=== PATIENT | male | born 1960 | race Caucasian/White ===

== ENCOUNTER 2017-01-21 22:30 | Emergency (ER) | payer OTHER ==
[~2017-01-21] VITALS: Ht 175.3 cm; Wt 79.0 kg
[2017-01-21 22:34] VITALS: Ht 175.3 cm; Wt 79.0 kg
[2017-01-21] MEDS ORDERED: HYDROmorphONE 1 MG/ML SYG IV STA ×2 (22:43→22:48)
[2017-01-21] MEDS ORDERED: ONDANSETRON 4 MG INJ IV STA ×2 (22:43→22:48)
[2017-01-21 22:45] VITALS: TEMP 97.9
[2017-01-21] MEDS ORDERED: SOD CHLORIDE 0.9% 1,000 ML IV STA (22:48)
[2017-01-21] MEDS ORDERED: OMEP40CA6 PO (22:53)
[2017-01-21] MEDS ORDERED: PRAV20TA63 PO (22:53)
[2017-01-21] MEDS ORDERED: LOSA1TAB20 PO (22:53)
[2017-01-21] MEDS ORDERED: AMLO5TAB4 PO (22:54)
[2017-01-21] MEDS ORDERED: METO50TA16 PO (22:54)
[2017-01-21] MEDS ORDERED: SOD CHLORIDE 0.9% 1,000 ML IV ONE (23:00)
[2017-01-21 23:03] LABS: ADD SCAN DIFF NO
[2017-01-21 23:06] LABS: BASOPHILS % 0.1 % (0.0-2.0); HEMATOCRIT 44.4 % (42.0-52.0); HEMOGLOBIN 16.1 g/dl (14.0-18.0); LYMPHOCYTES # 0.8 10^3/ul (0.8-2.9); LYMPHOCYTES % 7.7 % (15.0-51.0); MEAN CORPUSCULAR HEMOGLOBIN 31.8 pg (29.0-33.0); MEAN CORPUSCULAR HGB CONC 36.3 g/dl (32.0-37.0); MEAN CORPUSCULAR VOLUME 87.7 fl (82.0-101.0); MEAN PLATELET VOLUME 9.7 fl (7.4-10.4); MONOCYTE # 0.2 10^3/ul (0.3-0.9); MONOCYTES % 2.2 % (0.0-11.0); NEUTROPHIL # 9.6 10^3/ul (1.6-7.5); NEUTROPHILS % 89.7 % (39.0-77.0); PLATELET COUNT 295 10^3/UL (140-415); RED BLOOD COUNT 5.06 10^6/ul (4.70-6.10); RED CELL DISTRIBUTION WIDTH 12.2 % (11.5-14.5); WHITE BLOOD COUNT 10.8 10^3/ul (4.8-10.8)
[2017-01-21 23:14] LABS: POTASSIUM 3.8 mmol/L (3.5-5.1)
[2017-01-21 23:16] LABS: CREATININE 0.84 mg/dl (0.61-1.24)
[2017-01-21 23:18] LABS: CALCIUM 9.4 mg/dl (8.4-10.2)
[2017-01-21 23:22] LABS: ADD UMIC YES; URINE BILIRUBIN (Dip) 1+ (NEGATIVE); URINE BLOOD (Dip) 3+ (NEGATIVE); URINE COLOR DK. BROWN (YELLOW); URINE GLUCOSE (Dip) NEGATIVE (NEGATIVE); URINE KETONES (Dip) NEGATIVE (NEGATIVE); URINE LEUKOCYTE ESTERASE (Dip) NEGATIVE (NEGATIVE); URINE NITRITE (Dip) NEGATIVE (NEGATIVE); URINE TOTAL PROTEIN (Dip) 2+ (NEGATIVE); URINE UROBILINOGEN (Dip) 0.2 E.U./dL (0.1-1.0)
[2017-01-21 23:44] LABS: ICTOTEST NEGATIVE (NEGATIVE); URINE RBCS >200 /HPF (0)
--- NOTE | 2017-01-22 00:10 | RADRPT ---
PROCEDURE: CT Abdomen and pelvis without contrast. CLINICAL INDICATION: Abdominal pain. TECHNIQUE: CT scan of the abdomen and pelvis was performed on a multi-detector high-resolution CT scanner. Contiguous axial images were obtained from the lung bases to the ischial tuberosities wit hout intravenous contrast. Coronal and sagittal reformatted images were also obtained. Images were reviewed on the PACS workstation. One or more of the following dose reduction techniques were used: - Automated exposure control. - Adjustment of the mA and/or kV according to patient size. - Use of iterative reconstruction technique. Exam CTD/vol = 9.23 mGy. Total exam DLP = 521.42 mGy-cm. COMPARISON: None. FINDINGS: Evaluation of the lung bases demonstrates minimal bibasilar atelectasis. Abdomen: The liver is normal in size and diffusely low in attenuation consistent with mild infiltra tion. There is no focal mass or dilatation of the biliary tree. The gallbladder is not distended. The spleen, pancreas and bilateral adrenal glands are within normal limits. Bilateral kidneys are normal in size with no contour deforming mass identified. There is a 2 mm calculus within the upper pole of the right kidney. There are multiple right renal calculi with the largest measuring 7 x 4 mm. There is a left-sided ureteral stent present. ureteral calculus identified. There is no hydron ephrosis or hydroureter. There is no retroperitoneal adenopathy. The abdominal aorta is of normal caliber with mild scattered atherosclerotic calcifications. There is no abnormal bowel wall thickening or distension. There is no bowel obstruction or free air . A normal appendix is identified. There is no diverticulosis or diverticulitis. There is no asci migdalia. Pelvis: The bladder contains a Jean catheter. The prostate and seminal vesicles are within normal limits. There is no significant pelvic adenopathy or free fluid. Evaluation of the osseous structures demonstrates no suspicious lytic or blastic lesion. IMPRESSION: Bilateral renal calculi. There is no radiopaque ureteral calculus or obstructive uropathy. Left-sided ureteral stent in place. Mild fatty infiltration of the liver. Mild vascular calcifications reflective of atherosclerosis. .Tho Tineo MD, Date Time Electronically viewed and signed by .Tho Tineo MD, MD on 01/22/2017 00:10 .T/
[2017-01-22] MEDS ORDERED: TAMS-14 PO (00:35)
[2017-01-22] MEDS ORDERED: CIPR500T4 PO (00:35)
[2017-01-22] MEDS ORDERED: HYDR-902 PO (00:35)
--- NOTE | 2017-01-22 00:42 | ERD ---
ER Documentation Chief Complaint Date/Time DATE: 01/22/17 TIME: 00:36 Chief Complaint AP on the left lower abdomen. Hx kidney stone and left kidney stent HPI This is a 56-year-old male who is complaining of left flank pain. The patient had a left ureter stent placed today at an outside facility for a 1 cm left ureter stent. The stone was broken up into small pieces first then the stent was placed. The patient has a Jean catheter from the procedure. The patient said that he had sudden pain became white and sweaty but no syncope. The pain is described as sharp and radiating into the left lower quadrant. Pain is exactly like prior stones he has had in the past. No chest pain shortness of breath or fever. No hematuria. ROS All systems reviewed and are negative except as per history of present illness. Medications Home Meds Active Scripts Hydrocodone/Acetaminophen ([place] 10-325 Tablet) 1 Each Tablet, 1 TAB PO Q6H Y for PAIN, #20 TAB Prov:DARELL STERN DO 01/22/17 Ciprofloxacin Hcl* (Ciprofloxacin Hcl*) 500 Mg Tablet, 500 MG PO BID for 7 Days , TAB Prov:DARELL STERN DO 01/22/17 Tamsulosin Hcl* (Flomax*) 0.4 Mg Cap.er.24h, 0.4 MG PO QPM, #10 CAP Prov:DARELL STERN DO 01/22/17 Reported Medications Metoprolol Succinate* (Toprol XL*) 50 Mg Tab.er.24h, 50 MG PO DAILY, #30 TAB 01/21/17 Amlodipine Besylate* (Norvasc*) 5 Mg Tablet, 5 MG PO DAILY, TAB 01/21/17 Omeprazole* (Omeprazole*) 40 Mg Capsule.dr, 40 MG PO DAILY, #30 CAP 01/21/17 Losartan-Hydrochlorothiazide (Losartan-HCTZ) 100-25 Mg Tab, 1 TAB PO DAILY, TAB 01/21/17 Pravastatin Sodium* (Pravastatin Sodium*) 20 Mg Tablet, 20 MG PO HS, TAB 01/21/17 Allergies Allergies: Coded Allergies: No Known Allergy (Unverified , 01/21/17) PMhx/Soc History of Surgery: Yes (HERNIA REPAIR 1996) Anesthesia Reaction: No Hx Neurological Disorder: No Hx Respiratory Disorders: No Hx Cardiac Disorders: Yes (HTN, DYSLIPIDEMIA) Hx Psychiatric Problems: No Hx Alcohol Use: Yes Hx Substance Use: No Hx Tobacco Use: Yes Smoking Status: Light tobacco smoker FmHx Family History: No coronary disease Physical Exam Vitals Vital Signs Date Time Temp Pulse Resp B/P Pulse Ox O2 Delivery O2 Flow Rate FiO2 01/21/17 22:45 97.9 88 18 135/72 100 Room Air 01/21/17 22:34 97.9 98 18 135/72 99 Physical Exam Const: Well-developed, well-nourished, in obvious pain Head: Atraumatic, normocephalic Eyes: Normal Conjunctiva, PERRLA, EOMI, normal sclera, no nystagmus ENT: Normal External Ears, Nose and Mouth, moist mucus membranes. Neck: Full range of motion. No meningismus, no lymphadenopathy. Resp: Clear to auscultation bilaterally, no wheezing, rhonchi, rales Cardio: Regular rate and rhythm, no murmurs, S1 S2 present Abd: Soft, non tender x 4, non distended. Normal bowel sounds, no guarding or rebound, no pulsitile abdominal masses or bruits Skin: No petechiae or rashes, no ecchymosis , no maculopapular rash Back: Left flank tenderness] Ext: No cyanosis, or edema, FROM x 4, normal inspection, neurovascularly intact x 4 Neur: Awake and alert, STR 5/5 x 4, sensation intact x 4, no focal findings, cerebellum intact Psych: Normal Mood and Affect Result Diagram: 01/21/17224901/21/172249 Results 24 hrs Laboratory Tests Test 01/21/17 22:50 01/21/17 22:57 Anion Gap 26 Basophils # 0.010^3/ul Basophils % 0.1% Blood Urea Nitrogen 18mg/dl Calcium Level 9.4mg/dl Carbon Dioxide Level 20mmol/L Chloride Level 99mmol/L Creatinine 0.84mg/dl Eosinophils # 0.010^3/ul Eosinophils % 0.0% Glucose Level 201mg/dl Hematocrit 44.4% Hemoglobin 16.1g/dl Lymphocytes # 0.810^3/ul Lymphocytes % 7.7% Mean Corpuscular Hemoglobin 31.8pg Mean Corpuscular Hemoglobin Concent 36.3g/dl Mean Corpuscular Volume 87.7fl Mean Platelet Volume 9.7fl Monocytes # 0.210^3/ul Monocytes % 2.2% Neutrophils # 9.610^3/ul Neutrophils % 89.7% Nucleated Red Blood Cells # 0.010^3/ul Nucleated Red Blood Cells % 0.0/100WBC Platelet Count 14748^3/UL Potassium Level 3.8mmol/L Red Blood Count 5.0610^6/ul Red Cell Distribution Width 12.2% Sodium Level 141mmol/L White Blood Count 10.810^3/ul Urine Bilirubin 1+ Urine Clarity CLEAR Urine Color DK. BROWN Urine Glucose NEGATIVE% Urine Hemoglobin 3+ Urine Ictotest NEGATIVE Urine Ketones NEGATIVE Urine Leukocyte Esterase NEGATIVE Urine Microscopic RBC >200/HPF Urine Microscopic WBC 2-5/HPF Urine Nitrite NEGATIVE Urine Specific [place] >=1.030 Urine Total Protein 2+ Urine Urobilinogen 0.2 E.U./dL Urine pH 5.5 Current Medications Medications (Trade) Dose Ordered Sig/José Miguel Route PRN Reason Start Time Stop Time Status Last Admin Dose Admin Sodium Chloride (NS) 1,000 ml @ 1,000 mls/hr Q1H ONCE IV 01/21/17 23:00 01/21/17 23:59 DC 01/21/17 22:47 Hydromorphone HCl (Dilaudid) 1 mg ONCE STAT IV 01/21/17 22:43 01/21/17 22:45 DC 01/21/17 22:47 Ondansetron HCl 4 mg 4 mg ONCE STAT IV 01/21/17 22:43 01/21/17 22:45 DC 01/21/17 22:47 Sodium Chloride (NS) 1,000 ml @ 1,000 mls/hr Q1H STAT IV 01/21/17 22:48 01/21/17 23:47 DC 01/22/17 00:22 Hydromorphone HCl (Dilaudid) 1 mg ONCE STAT IV 01/21/17 22:48 01/21/17 22:50 DC 01/22/17 00:25 Ondansetron HCl (Zofran Inj) 4 mg ONCE STAT IV 01/21/17 22:48 01/21/17 22:50 DC 01/22/17 00:25 Procedures/MDM PROCEDURE: CT Abdomen and pelvis without contrast. CLINICAL INDICATION: Abdominal pain. TECHNIQUE: CT scan of the abdomen and pelvis was performed on a multi- detector high-resolution CT scanner. Contiguous axial images were obtained from the lung bases to the ischial tuberosities without intravenous contrast. Coronal and sagittal reformatted images were also obtained. Images were reviewed on the PACS workstation. One or more of the following dose reduction techniques were used: - Automated exposure control. - Adjustment of the mA and/or kV according to patient size. - Use of iterative reconstruction technique. Exam CTD/vol = 9.23 mGy. Total exam DLP = 521.42 mGy-cm. COMPARISON: None. FINDINGS: Evaluation of the lung bases demonstrates minimal bibasilar atelectasis. Abdomen: The liver is normal in size and diffusely low in attenuation consistent with mild infiltration. There is no focal mass or dilatation of the biliary tree. The gallbladder is not distended. The spleen, pancreas and bilateral adrenal glands are within normal limits. Bilateral kidneys are normal in size with no contour deforming mass identified. There is a 2 mm calculus within the upper pole of the right kidney. There are multiple right renal calculi with the largest measuring 7 x 4 mm. There is a left-sided ureteral stent present. ureteral calculus identified. There is no hydronephrosis or hydroureter. There is no retroperitoneal adenopathy. The abdominal aorta is of normal caliber with mild scattered atherosclerotic calcifications. There is no abnormal bowel wall thickening or distension. There is no bowel obstruction or free air. A normal appendix is identified. There is no diverticulosis or diverticulitis. There is no ascites. Pelvis: The bladder contains a Jean catheter. The prostate and seminal vesicles are within normal limits. There is no significant pelvic adenopathy or free fluid. Evaluation of the osseous structures demonstrates no suspicious lytic or blastic lesion. IMPRESSION: Bilateral renal calculi. There is no radiopaque ureteral calculus or obstructive uropathy. Left-sided ureteral stent in place. Mild fatty infiltration of the liver. Mild vascular calcifications reflective of atherosclerosis. .Tho Tineo MD, MD Date Time Electronically viewed and signed by .Tho Tineo MD, MD on 01/22/2017 00:10 .T/ CC: DARELL STERN DO Patient is pain-free now no evidence of any residual stones. Has a mild UTI will cover with antibiotics patient is pain-free and was discharged with Flomax and norco Departure Diagnosis: Primary Impression: Ureterolithiasis Condition: Stable Patient Instructions: Kidney Stone W/ Colic DARELL STERN DO Jan 22, 2017 00:42
[2017-01-22 00:51] VITALS: BP 125/71; PULSE 73; RESP 18
== END 2017-01-22 00:49 | disposition home or self-care (01) ==
LOC: E/R 22:30
DX: N20.1 Calculus of ureter (principal); I10 Essential (primary) hypertension; F17.210 Nicotine dependence, cigarettes, uncomplicated
CPT/HCPCS: 36415; 74176; 80048; 81001; 85025; 96374; 96375; 96376; J1170; J2405; J7030; Z7502; 81003

== ENCOUNTER 2017-01-27 07:43 | Emergency (ER) | payer OTHER ==
[~2017-01-27] VITALS: Ht 175.3 cm; Wt 77.3 kg
[~2017-01-27 07:43] MED LIST: AMLO5TAB4 PO; CIPR500T4 PO; HYDR-902 PO; LOSA1TAB20 PO; METO50TA16 PO; OMEP40CA6 PO; PRAV20TA63 PO; TAMS-14 PO
[2017-01-27 07:45] VITALS: Ht 175.3 cm; Wt 77.3 kg
[2017-01-27] MEDS ORDERED: SOD CHLORIDE 0.9% 1,000 ML IV STA (07:53)
[2017-01-27] MEDS ORDERED: HYDROmorphONE 1 MG/ML SYG IV STA (07:53)
[2017-01-27] MEDS ORDERED: ONDANSETRON 4 MG INJ IV STA (07:53)
[2017-01-27 08:13] LABS: ADD SCAN DIFF NO
[2017-01-27 08:25] LABS: BASOPHILS % 0.1 % (0.0-2.0); EOSINOPHILS # 0.2 10^3/ul (0.0-0.5); EOSINOPHILS % 1.8 % (0.0-7.0); HEMATOCRIT 44.5 % (42.0-52.0); HEMOGLOBIN 16.3 g/dl (14.0-18.0); LYMPHOCYTES # 2.8 10^3/ul (0.8-2.9); LYMPHOCYTES % 29.6 % (15.0-51.0); MEAN CORPUSCULAR HEMOGLOBIN 31.8 pg (29.0-33.0); MEAN CORPUSCULAR HGB CONC 36.6 g/dl (32.0-37.0); MEAN CORPUSCULAR VOLUME 86.9 fl (82.0-101.0); MEAN PLATELET VOLUME 9.5 fl (7.4-10.4); MONOCYTE # 0.7 10^3/ul (0.3-0.9); NEUTROPHIL # 5.6 10^3/ul (1.6-7.5); NEUTROPHILS % 60.3 % (39.0-77.0); PLATELET COUNT 293 10^3/UL (140-415); RED BLOOD COUNT 5.12 10^6/ul (4.70-6.10); RED CELL DISTRIBUTION WIDTH 11.9 % (11.5-14.5); WHITE BLOOD COUNT 9.3 10^3/ul (4.8-10.8)
--- NOTE | 2017-01-27 08:31 | RADRPT ---
PROCEDURE: CT abdomen and pelvis without contrast. CLINICAL INDICATION: Left flank pain and left groin pain. TECHNIQUE: CT of the abdomen and pelvis without contrast was performed on a multidetector high-res olution CT scanner. Coronal and sagittal reformatted images were obtained from the axial source imag es. Images were reviewed on a high-resolution PACS workstation. The total exam CTDI equals 11.85 mGy and the total exam DLP equals 737.81 mGy-cm. One or more of the following dose reduction techniques were used: - Automated exposure control. - Adjustment of the mA and/or kV according to patient size. - Use of iterative reconstruction technique. COMPARISON: CT dated 01/21/2017. FINDINGS: The visualized lung bases are clear and the visualized heart is unremarkable. The liver is grossly unremarkable. There is no intra or extrahepatic biliary ductal dilatation. The gallbladder, spleen, pancreas, adrenal glands are grossly unremarkable. There is a left-sided double J nephroureteral stent in place with new mild to moderate left-sided hy dronephrosis and hydroureter. There is also mildly increased left perinephric and periureteral infla mmatory change. There is a new punctate stone within the proximal left ureter posterior to the stent . Nonobstructing stones at the midportion and lower pole of the left kidney, ranging in size from p unctate to 4 mm, are not significantly changed. There is a similar 2 mm nonobstructing stone at the midportion of the right kidney. There is no right-sided hydronephrosis. There is no bowel wall thickening or evidence of obstruction. The appendix is in the right lower trevor drant, and is unremarkable. There is no free intraperitoneal air or free fluid. There is no mesente jake or retroperitoneal adenopathy. There are atherosclerotic changes of the aorta, which is nonaneu rysmal. The prostate gland is large measuring 4.9 cm in axial dimension. The seminal vesicles are g rossly unremarkable. There is mild to moderate multilevel degenerative spondylosis. There are no concerning osseous lesio ns. IMPRESSION: 1. New mild to moderate left-sided hydroureteronephrosis with mildly increased left perinephric and periureteral inflammatory change. Given that a double J nephroureteral stent remains in place, thi s suggests stent malfunction. 2. New punctate stone within the proximal left ureter posterior to the stent, which should not be a source of hydronephrosis with the stent in place. 3. Bilateral nonobstructing nephrolithiasis, unchanged. 4. Enlarged prostate gland. Correlate with PSA. 5. Vascular calcifications consistent with atherosclerosis. RPTAT: GG .Riley An MD, MD Date Time Electronically viewed and signed by .Riley An MD, MD on 01/27/2017 08:31 .P/
[2017-01-27 08:33] LABS: ALBUMIN 4.7 g/dl (3.3-4.9)
[2017-01-27 08:34] LABS: POTASSIUM 3.6 mmol/L (3.5-5.1)
[2017-01-27 08:36] LABS: ALBUMIN/GLOBULIN RATIO 1.34; BILIRUBIN,INDIRECT 0.9 mg/dl (0-1.1); BILIRUBIN,TOTAL 0.9 mg/dl (0.2-1.3); CREATININE 0.96 mg/dl (0.61-1.24); TOTAL PROTEIN 8.2 g/dl (6.1-8.1)
[2017-01-27 08:37] LABS: CALCIUM 9.6 mg/dl (8.4-10.2)
[2017-01-27 08:38] LABS: INR 0.97; PARTIAL THROMBOPLASTIN TIME 22.5 Sec (25.0-35.0); PROTIME 12.9 Sec (12.2-14.2)
[2017-01-27 08:48] LABS: TROPONIN-I 0.019 ng/ml (0.00-0.12)
[2017-01-27 09:19] LABS: ADD UMIC YES; URINE BILIRUBIN (Dip) 1+ (NEGATIVE); URINE BLOOD (Dip) 3+ (NEGATIVE); URINE COLOR AMBER (YELLOW); URINE KETONES (Dip) 15 (NEGATIVE); URINE LEUKOCYTE ESTERASE (Dip) 1+ (NEGATIVE); URINE NITRITE (Dip) POSITIVE (NEGATIVE); URINE TOTAL PROTEIN (Dip) 4+ (NEGATIVE); URINE UROBILINOGEN (Dip) 2.0 E.U./dL (0.1-1.0)
[2017-01-27] MEDS ORDERED: HYDR-902 PO (10:08)
[2017-01-27] MEDS ORDERED: CIPR500T4 PO (10:08)
[2017-01-27 10:10] LABS: ICTOTEST NEGATIVE (NEGATIVE)
[2017-01-27 10:11] LABS: MUCUS,URINE FEW; SQUAMOUS EPITHELIAL CELL,UR FEW; URINE RBCS >50 /HPF (0)
[2017-01-27 10:14] LABS: BACTERIA,URINE MODERATE
[2017-01-27 10:29] VITALS: BP 132/67; PULSE 91; RESP 18
--- NOTE | 2017-01-27 12:03 | ERD ---
ER Documentation Chief Complaint Date/Time DATE: 01/27/17 TIME: 12:01 Chief Complaint LLQ abd pain x 0500 hx L kidney stone HPI A 56-year-old male with kidney stones and hypertension who presents saying "I think I have a kidney stone". The patient had a stent placed on Thursday and is having left sided flank pain and left-sided abdominal pain. He has had constipation without diarrhea. The patient has nausea. His urologist is at [facility]. The pain is constant and sharp in nature. ROS All systems reviewed and are negative except as per history of present illness. Medications Home Meds Active Scripts Ciprofloxacin Hcl* (Ciprofloxacin Hcl*) 500 Mg Tablet, 500 MG PO BID for 7 Days , TAB Prov:MANSOOR ALANIZ MD 01/27/17 Hydrocodone/Acetaminophen ([place] 10-325 Tablet) 1 Each Tablet, 1 TAB PO Q6H Y for PAIN, #16 TAB Prov:MANSOOR ALANIZ MD 01/27/17 Hydrocodone/Acetaminophen ([place] 10-325 Tablet) 1 Each Tablet, 1 TAB PO Q6H Y for PAIN, #20 TAB Prov:DARELL STERN DO 01/22/17 Ciprofloxacin Hcl* (Ciprofloxacin Hcl*) 500 Mg Tablet, 500 MG PO BID for 7 Days , TAB Prov:DARELL STERN DO 01/22/17 Tamsulosin Hcl* (Flomax*) 0.4 Mg Cap.er.24h, 0.4 MG PO QPM, #10 CAP Prov:DARELL STERN DO 01/22/17 Reported Medications Metoprolol Succinate* (Toprol XL*) 50 Mg Tab.er.24h, 50 MG PO DAILY, #30 TAB 01/21/17 Amlodipine Besylate* (Norvasc*) 5 Mg Tablet, 5 MG PO DAILY, TAB 01/21/17 Omeprazole* (Omeprazole*) 40 Mg Capsule.dr, 40 MG PO DAILY, #30 CAP 01/21/17 Losartan-Hydrochlorothiazide (Losartan-HCTZ) 100-25 Mg Tab, 1 TAB PO DAILY, TAB 01/21/17 Pravastatin Sodium* (Pravastatin Sodium*) 20 Mg Tablet, 20 MG PO HS, TAB 01/21/17 Allergies Allergies: Coded Allergies: No Known Allergy (Unverified , 01/21/17) PMhx/Soc History of Surgery: Yes (HERNIA REPAIR 1996) Anesthesia Reaction: No Hx Neurological Disorder: No Hx Respiratory Disorders: No Hx Cardiac Disorders: Yes (HTN, DYSLIPIDEMIA) Hx Psychiatric Problems: No Hx Alcohol Use: Yes Hx Substance Use: No Hx Tobacco Use: Yes Smoking Status: Current every day smoker FmHx Family History: diabetes Physical Exam Vitals Vital Signs Date Time Temp Pulse Resp B/P Pulse Ox O2 Delivery O2 Flow Rate FiO2 01/27/17 10:29 91 18 132/67 99 Room Air 01/27/17 07:45 99.0 99 22 162/92 100 Physical Exam Const: Moderate distress secondary to pain Head: Atraumatic Eyes: Normal Conjunctiva ENT: Normal External Ears, Nose and Mouth. Neck: Full range of motion..~ No meningismus. Resp: Clear to auscultation bilaterally Cardio: Regular rate and rhythm, no murmurs Abd: Soft, left-sided abdominal pain with palpation Skin: No petechiae or rashes Back: No midline or flank tenderness Ext: No cyanosis, or edema Neur: Awake and alert Psych: Normal Mood and Affect Result Diagram: 01/27/17 0803 01/27/17 0803 Results 24 hrs Laboratory Tests Test 01/27/17 08:03 01/27/17 09:00 Activated Partial Thromboplast Time 22.5Sec Alanine Aminotransferase (ALT/SGPT) 36IU/L Albumin 4.7g/dl Albumin/Globulin Ratio 1.34 Alkaline Phosphatase 86IU/L Anion Gap 25 Aspartate Amino Transf (AST/SGOT) 32IU/L Basophils # 0.010^3/ul Basophils % 0.1% Blood Urea Nitrogen 17mg/dl Calcium Level 9.6mg/dl Carbon Dioxide Level 21mmol/L Chloride Level 99mmol/L Creatinine 0.96mg/dl Direct Bilirubin 0.00mg/dl Eosinophils # 0.210^3/ul Eosinophils % 1.8% Globulin 3.50g/dl Glucose Level 156mg/dl Hematocrit 44.5% Hemoglobin 16.3g/dl INR International Normalized Ratio 0.97 Indirect Bilirubin 0.9mg/dl Lipase 116U/L Lymphocytes # 2.810^3/ul Lymphocytes % 29.6% Mean Corpuscular Hemoglobin 31.8pg Mean Corpuscular Hemoglobin Concent 36.6g/dl Mean Corpuscular Volume 86.9fl Mean Platelet Volume 9.5fl Monocytes # 0.710^3/ul Monocytes % 8.0% Neutrophils # 5.610^3/ul Neutrophils % 60.3% Nucleated Red Blood Cells # 0.010^3/ul Nucleated Red Blood Cells % 0.0/100WBC Platelet Count 99884^3/UL Potassium Level 3.6mmol/L Prothrombin Time 12.9Sec Prothrombin Time Ratio 1.0 Red Blood Count 5.1210^6/ul Red Cell Distribution Width 11.9% Sodium Level 141mmol/L Total Bilirubin 0.9mg/dl Total Protein 8.2g/dl Troponin I 0.019ng/ml White Blood Count 9.310^3/ul Urine Bacteria MODERATE Urine Bilirubin 1+ Urine Calcium Oxalate Crystals FEW Urine Clarity CLEAR Urine Color NATHALY Urine Glucose 0.1%% Urine Hemoglobin 3+ Urine Ictotest NEGATIVE Urine Ketones 15 Urine Leukocyte Esterase 1+ Urine Microscopic RBC >50/HPF Urine Microscopic WBC 5-10/HPF Urine Mucus FEW Urine Nitrite POSITIVE Urine Specific [place] 1.025 Urine Squamous Epithelial Cells FEW Urine Total Protein 4+ Urine Urobilinogen 2.0 E.U./dL Urine Yeast FEW Urine pH 6.0 Current Medications Medications (Trade) Dose Ordered Sig/José Miguel Route PRN Reason Start Time Stop Time Status Last Admin Dose Admin Sodium Chloride (NS) 1,000 ml @ 1,000 mls/hr Q1H STAT IV 01/27/17 07:53 01/27/17 08:52 DC 01/27/17 08:04 Hydromorphone HCl (Dilaudid) 1 mg ONCE STAT IV 01/27/17 07:53 01/27/17 07:54 DC 01/27/17 08:03 Ondansetron HCl (Zofran Inj) 4 mg ONCE STAT IV 01/27/17 07:53 01/27/17 07:54 DC 01/27/17 08:03 Procedures/MDM PROCEDURE: CT abdomen and pelvis without contrast. CLINICAL INDICATION: Left flank pain and left groin pain. TECHNIQUE: CT of the abdomen and pelvis without contrast was performed on a multidetector high-resolution CT scanner. Coronal and sagittal reformatted images were obtained from the axial source images. Images were reviewed on a high-resolution PACS workstation. The total exam CTDI equals 11.85 mGy and the total exam DLP equals 737.81 mGy-cm. One or more of the following dose reduction techniques were used: - Automated exposure control. - Adjustment of the mA and/or kV according to patient size. - Use of iterative reconstruction technique. COMPARISON: CT dated 01/21/2017. FINDINGS: The visualized lung bases are clear and the visualized heart is unremarkable. The liver is grossly unremarkable. There is no intra or extrahepatic biliary ductal dilatation. The gallbladder, spleen, pancreas, adrenal glands are grossly unremarkable. There is a left-sided double J nephroureteral stent in place with new mild to moderate left-sided hydronephrosis and hydroureter. There is also mildly increased left perinephric and periureteral inflammatory change. There is a new punctate stone within the proximal left ureter posterior to the stent. Nonobstructing stones at the midportion and lower pole of the left kidney, ranging in size from punctate to 4 mm, are not significantly changed. There is a similar 2 mm nonobstructing stone at the midportion of the right kidney. There is no right-sided hydronephrosis. There is no bowel wall thickening or evidence of obstruction. The appendix is in the right lower quadrant, and is unremarkable. There is no free intraperitoneal air or free fluid. There is no mesenteric or retroperitoneal adenopathy. There are atherosclerotic changes of the aorta, which is nonaneurysmal. The prostate gland is large measuring 4.9 cm in axial dimension. The seminal vesicles are grossly unremarkable. There is mild to moderate multilevel degenerative spondylosis. There are no concerning osseous lesions. IMPRESSION: 1. New mild to moderate left-sided hydroureteronephrosis with mildly increased left perinephric and periureteral inflammatory change. Given that a double J nephroureteral stent remains in place, this suggests stent malfunction. 2. New punctate stone within the proximal left ureter posterior to the stent, which should not be a source of hydronephrosis with the stent in place. 3. Bilateral nonobstructing nephrolithiasis, unchanged. 4. Enlarged prostate gland. Correlate with PSA. 5. Vascular calcifications consistent with atherosclerosis. RPTAT: GG .Riley An MD, MD Date Time Electronically viewed and signed by .Riley An MD, MD on 01/27/2017 08:31 Patient is a 56-year-old male presents with acute left-sided flank pain. CT scan shows mild to moderate left-sided hydronephrosis. The patient has a mild urine infection. There is no obvious obstruction at this time. The patient feels better after pain medicines. Laboratory studies were normal. I believe outpatient management is appropriate. I doubt sepsis. The patient will be given Cipro as well as [place]. The patient can follow-up with his urologist. I did speak with the urologist who is going to take out the stent on . The patient can return for any worsening symptoms. I doubt appendicitis, cholecystitis, pancreatitis, or diverticulitis. Departure Diagnosis: Primary Impression: Pyelonephritis Additional Impression: Abdominal pain Abdominal location: unspecified location Qualified Code: R10.9 - Abdominal pain, unspecified location Condition: Fair Patient Instructions: Pyelonephritis Referrals: Your Urologist Additional Instructions: SPECIALIST: YOU HAVE A MEDICAL CONDITION WHICH REQUIRES YOU TO SEE A SPECIALIST WITHIN THE NEXT 1-2 DAYS. PLEASE FOLLOW UP WITH YOUR PRIMARY PHYSICIAN FOR REFFERAL.IF YOU DO NOT HAVE A PRIMARY CARE PHYSICIAN AND/OR YOU CAN NOT AFFORD TO SEE A PHYSICIAN THE FOLLOWING RESOURCES HAVE BEEN SUPPLIED TO YOU. IT IS YOUR RESPONSIBILITY TO BE SEEN BY THE SPECIALIST MANSOOR ALANIZ MD Jan 27, 2017 12:03
== END 2017-01-27 10:33 | disposition home or self-care (01) ==
LOC: E/R 07:43
DX: N12 Tubulo-interstitial nephritis, not specified as acute or chronic (principal); I10 Essential (primary) hypertension; F17.210 Nicotine dependence, cigarettes, uncomplicated; R40.2142 Coma scale, eyes open, spontaneous, at arrival to emergency department; R40.2252 Coma scale, best verbal response, oriented, at arrival to emergency department; R40.2362 Coma scale, best motor response, obeys commands, at arrival to emergency department; R11.0 Nausea
CPT/HCPCS: 74176; 80053; 81001; 83690; 84484; 85025; 85610; 85730; 87086; 93005; J1170; J2405; J7030; 36415; 81003; 96374; 96375

== ENCOUNTER 2017-05-02 09:53 | Emergency (ER) | payer OTHER ==
[~2017-05-02] VITALS: Wt 89.0 kg
[2017-05-02] MEDS ORDERED: LIDOCAINE 2% (MDV) 20 ML INJ INJ ONE (10:30)
--- NOTE | 2017-05-02 10:52 | RADRPT ---
PROCEDURE: CT brain without contrast CLINICAL INDICATION: Head injury, forehead laceration TECHNIQUE: CT of the brain without contrast was performed on a multidetector CT scanner, with multi planar reformats. One or more of the following dose reduction techniques were used: Automated expos ure control, adjustment in mA and / or kV according to patient size, use of iterative reconstructive technique. CTDIvol = 45 mGy; DLP = 720 mGy-cm. COMPARISON: None available FINDINGS: No acute intracranial hemorrhage is identified. No extra-axial fluid collection is seen. There is no mass effect. No midline shift is identified. Ventricles and sulci are within normal limits for size and configuration. The density of the brain is unremarkable. Tubbs-white differentiation is preserved. Atherosclerotic calcifications of the proximal intracranial arteries are noted. Osseous structures are unremarkable. There is left greater than right ethmoid air cell opacificatio n. IMPRESSION: No evidence of acute intracranial pathology. RPTAT: HH .Billy Lew MD, Date Time Electronically viewed and signed by .Billy Lew MD, on 05/02/2017 10:52 .O/
[2017-05-02] MEDS ORDERED: ACET500C5 PO (11:33)
--- NOTE | 2017-05-02 13:05 | ERD ---
ER Documentation Chief Complaint Date/Time DATE: 05/02/17 TIME: 12:56 Chief Complaint LAC TO FOREHEAD HPI 56-year-old male patient with a past medical history of nephrolithiasis and hypertension presents to the ED complaining of a mechanical fall that he sustained as he was on a two-step stepladder trying to fix a light bulb earlier today. Patient states that he accidentally fell and hit the front of his head on the anterior part of his forehead on the edge of the wall. Reports that he is taking aspirin. Denies any loss of consciousness. Denies any nausea, vomiting, headache, abdominal pain, chest pain, shortness of breath, extremity pain, loss of sensation, loss of range of motion, dizziness, seizures, hematemesis. ROS All systems reviewed and are negative except as per history of present illness. Medications Home Meds Active Scripts Acetaminophen* (Tylophen*) 500 Mg Capsule, 1 CAP PO Q6H Y for PAIN AND OR ELEVATED TEMP, #20 CAP Prov:CHING DIAZ PA-C 05/02/17 Ciprofloxacin Hcl* (Ciprofloxacin Hcl*) 500 Mg Tablet, 500 MG PO BID for 7 Days , TAB Prov:MANSOOR ALANIZ MD 01/27/17 Hydrocodone/Acetaminophen ([place] 10-325 Tablet) 1 Each Tablet, 1 TAB PO Q6H Y for PAIN, #16 TAB Prov:MANSOOR ALANIZ MD 01/27/17 Hydrocodone/Acetaminophen ([place] 10-325 Tablet) 1 Each Tablet, 1 TAB PO Q6H Y for PAIN, #20 TAB Prov:DARELL STERN DO 01/22/17 Ciprofloxacin Hcl* (Ciprofloxacin Hcl*) 500 Mg Tablet, 500 MG PO BID for 7 Days , TAB Prov:DARELL STERN DO 01/22/17 Tamsulosin Hcl* (Flomax*) 0.4 Mg Cap.er.24h, 0.4 MG PO QPM, #10 CAP Prov:DARELL STERN DO 01/22/17 Reported Medications Metoprolol Succinate* (Toprol XL*) 50 Mg Tab.er.24h, 50 MG PO DAILY, #30 TAB 01/21/17 Amlodipine Besylate* (Norvasc*) 5 Mg Tablet, 5 MG PO DAILY, TAB 01/21/17 Omeprazole* (Omeprazole*) 40 Mg Capsule.dr, 40 MG PO DAILY, #30 CAP 01/21/17 Losartan-Hydrochlorothiazide (Losartan-HCTZ) 100-25 Mg Tab, 1 TAB PO DAILY, TAB 01/21/17 Pravastatin Sodium* (Pravastatin Sodium*) 20 Mg Tablet, 20 MG PO HS, TAB 01/21/17 Allergies Allergies: Coded Allergies: No Known Allergy (Unverified , 01/21/17) PMhx/Soc History of Surgery: Yes (HERNIA REPAIR 1996) Anesthesia Reaction: No Hx Neurological Disorder: No Hx Respiratory Disorders: No Hx Cardiac Disorders: Yes (HTN, DYSLIPIDEMIA) Hx Psychiatric Problems: No Hx Alcohol Use: Yes Hx Substance Use: No Hx Tobacco Use: Yes Smoking Status: Current every day smoker Physical Exam Vitals Vital Signs Date Time Temp Pulse Resp B/P Pulse Ox O2 Delivery O2 Flow Rate FiO2 05/02/17 10:00 98.0 80 18 136/73 99 Physical Exam Const: [id number], well-nourished. In no acute distress. Head: Atraumatic, normocephalic Eyes: Normal Conjunctiva without injection. No purulent discharge. PERRLA. EOMI ENT: Normal external ear. Ear canal without erythema. Tympanic membrane pearly tubbs without effusion or bulging. Nasal canal clear with normal turbinates. Moist oropharynx without tonsillar exudates. Non-erythematous pharynx. Uvula midline. No drooling. No trismus. Neck: No cervical midline tenderness. Full range of motion. No meningismus. No cervical lymphadenopathy. No JVD. Resp: Clear to auscultation bilaterally. No wheezing, rhonchi, rales, or crackles. No accessory muscle use. No retractions. Cardio: Regular rate and rhythm. No murmurs, rubs or gallops. Abd: Soft, non tender, non distended. Normal bowel sounds. No palpable masses. No rebound tenderness. No guarding. Negative McBurney's Point. Negative Redding's Sign. Skin: Normal skin turgor. No petechiae or rashes. 3.5 cm laceration noted on the left anterior forehead above eyebrow. Minimal bleeding noted. No purulent discharge, fluctuance, induration, ecchymosis noted. Back: No midline tenderness. No CVA tenderness. Ext: No cyanosis, or edema. Distal pulses intact bilaterally. Neur: Awake and alert. Normal gait. Normal coordination. Cranial Nerves II- VII intact. Normal finger to nose. Muscle strength 5/5. Sensation intact. Psych: Normal Mood and Affect Results 24 hrs Current Medications Medications (Trade) Dose Ordered Sig/José Miguel Route PRN Reason Start Time Stop Time Status Last Admin Dose Admin Lidocaine (Xylocaine 2% (Mdv) 20 ml) 20 ml ONCE ONCE INJ 05/02/17 10:30 05/02/17 10:31 DC 05/02/17 10:27 Procedures/MDM 56-year-old male patient with a past medical history of nephrolithiasis and hypertension presents the ED complaining of a mechanical fall that occurred earlier today on a stepladder. Patient is afebrile and nontoxic-appearing. Patient has normal vital signs. Since patient is taking aspirin, a CT of the brain without contrast was ordered to further evaluate patient. PROCEDURE: CT brain without contrast CLINICAL INDICATION: Head injury, forehead laceration TECHNIQUE: CT of the brain without contrast was performed on a multidetector CT scanner, with multiplanar reformats. One or more of the following dose reduction techniques were used: Automated exposure control, adjustment in mA and / or kV according to patient size, use of iterative reconstructive technique. CTDIvol = 45 mGy; DLP = 720 mGy-cm. COMPARISON: None available FINDINGS: No acute intracranial hemorrhage is identified. No extra-axial fluid collection is seen. There is no mass effect. No midline shift is identified. Ventricles and sulci are within normal limits for size and configuration. The density of the brain is unremarkable. Tubbs-white differentiation is preserved. Atherosclerotic calcifications of the proximal intracranial arteries are noted. Osseous structures are unremarkable. There is left greater than right ethmoid air cell opacification. IMPRESSION: No evidence of acute intracranial pathology. Patient gave consent to perform laceration repair. Laceration Repair by me: Anesthesia: 2 cc 1% lidocaine locally Location: Left forehead above left eyebrow Tendon/Joint/Nerves: No injury Foreign body: None detected after copious irrigation and exploration Technique: 5 6-0 Ethilon Simple Interrupted Sutures Complexity: No subcutaneous sutures/mucosal repair/ edge excision Post Closure Length: [3.5] cm Patient's bleeding was easily controlled in the department and there is no indication of anemia. Low suspicion for intracranial bleed, subarachnoid hemorrhage, meningitis, TIA, stroke, seizures, subdural hematoma, epidural hematoma, deep space infection, anemia, skull fracture or other emergent conditions. Patient is appropriate for outpatient follow up. 48 hour wound check. Scar minimization instructions given. Instructed patient to return for suture removal in 5-7 days. Discharge medications: Tylenol. Instructed patient to return to the ED sooner for any worsening symptoms. Follow up with primary care physician in 1-2 days. Patient's questions were answered. Patient understood and agreed with discharge plan. Departure Diagnosis: Primary Impression: Laceration of face Encounter type: initial encounter Qualified Code: S01.81XA - Laceration of face, initial encounter Condition: Stable Patient Instructions: Laceration, Face (Suture Or Tape) Referrals: [facility] YOU HAVE RECEIVED A MEDICAL SCREENING EXAM AND THE RESULTS INDICATE THAT YOU DO NOT HAVE A CONDITION THAT REQUIRES URGENT TREATMENT IN THE EMERGENCY DEPARTMENT. FURTHER EVALUATION AND TREATMENT OF YOUR CONDITION CAN WAIT UNTIL YOU ARE SEEN IN YOUR DOCTORS OFFICE WITHIN THE NEXT 1-2 DAYS. IT IS YOUR RESPONSIBILITY TO MAKE AN APPOINTMENT FOR FOLOW-UP CARE. IF YOU HAVE A PRIMARY DOCTOR --you should call your primary doctor and schedule an appointment IF YOU DO NOT HAVE A PRIMARY DOCTOR YOU CAN CALL OUR PHYSICIAN REFERRAL HOTLINE AT IF YOU CAN NOT AFFORD TO SEE A PHYSICIAN YOU CAN CHOSE FROM THE FOLLOWING [facility] [address] [facility]. [facility] [address] [facility] [facility] [address] [facility] [address] [facility] [facility] [address] [facility]. [facility]. [address] [facility]. [facility] YOU HAVE RECEIVED A MEDICAL SCREENING EXAM AND THE RESULTS INDICATE THAT YOU DO NOT HAVE A CONDITION THAT REQUIRES URGENT TREATMENT IN THE EMERGENCY DEPARTMENT. FURTHER EVALUATION AND TREATMENT OF YOUR CONDITION CAN WAIT UNTIL YOU ARE SEEN IN YOUR DOCTORS OFFICE WITHIN THE NEXT 1-2 DAYS. IT IS YOUR RESPONSIBILITY TO MAKE AN APPOINTMENT FOR FOLOW-UP CARE. IF YOU HAVE A PRIMARY DOCTOR --you should call your primary doctor and schedule and appointment IF YOU DO NOT HAVE A PRIMARY DOCTOR YOU CAN CALL OUR PHYSICIAN REFERRAL HOTLINE AT . IF YOU CAN NOT AFFORD TO SEE A PHYSICIAN YOU CAN CHOSE FROM THE FOLLOWING [facility] INSTITUTIONS: [facility] [address] [place] [address] [facility] [address] [place] [address] [facility] [address] [place] [address] [facility] URGENT C[facility]/SPECIALTIES Additional Instructions: Follow up in 2 days in your clinic for wound check. Follow up with your physician to remove the stitches:For Face wounds 5-7 days.For Elsewhere on the body 7-10 days. Call your primary care doctor for an appointment during the next 2-3 days.See the doctor sooner or return here if your condition worsens before your appointment time. CHING DIAZ PA-C May 02, 2017 13:05
== END 2017-05-02 11:41 | disposition home or self-care (01) ==
LOC: FTE 09:53
DX: S01.81XA Laceration without foreign body of other part of head, initial encounter (principal); I10 Essential (primary) hypertension; F17.210 Nicotine dependence, cigarettes, uncomplicated; W01.198A Fall on same level from slipping, tripping and stumbling with subsequent striking against other object, initial encounter; Y92.9 Unspecified place or not applicable
CPT/HCPCS: 12013; 70450; Z7610

== ENCOUNTER 2017-05-08 20:52 | Emergency (ER) | payer OTHER ==
[~2017-05-08] VITALS: Ht 177.8 cm; Wt 81.0 kg
[~2017-05-08 20:52] MED LIST changes: +ACET500C5 PO
[2017-05-08 20:53] VITALS: Ht 177.8 cm; Wt 81.0 kg
--- NOTE | 2017-05-08 21:22 | ERD ---
ER Documentation Chief Complaint Date/Time DATE: 05/08/17 TIME: 21:20 Chief Complaint suture removal left upper yebrow HPI 56-year-old male patient sent to the emergency room for removal of sutures of a laceration that occurred on his upper left eyebrow from a mechanical fall that occurred about 1 week ago when he was on a stepladder trying to fix a light ball. Patient denies any fevers, loss of consciousness, neuro deficits. He states that it is healing well. States pain is minimal in severity ROS All systems reviewed and are negative except as per history of present illness. Medications Home Meds Active Scripts Acetaminophen* (Tylophen*) 500 Mg Capsule, 1 CAP PO Q6H Y for PAIN AND OR ELEVATED TEMP, #20 CAP Prov:CHING DIAZ PA-C 05/02/17 Ciprofloxacin Hcl* (Ciprofloxacin Hcl*) 500 Mg Tablet, 500 MG PO BID for 7 Days , TAB Prov:MANSOOR ALANIZ MD 01/27/17 Hydrocodone/Acetaminophen ([place] 10-325 Tablet) 1 Each Tablet, 1 TAB PO Q6H Y for PAIN, #16 TAB Prov:MANSOOR ALANIZ MD 01/27/17 Hydrocodone/Acetaminophen ([place] 10-325 Tablet) 1 Each Tablet, 1 TAB PO Q6H Y for PAIN, #20 TAB Prov:DARELL STERN DO 01/22/17 Ciprofloxacin Hcl* (Ciprofloxacin Hcl*) 500 Mg Tablet, 500 MG PO BID for 7 Days , TAB Prov:DARELL STERN DO 01/22/17 Tamsulosin Hcl* (Flomax*) 0.4 Mg Cap.er.24h, 0.4 MG PO QPM, #10 CAP Prov:DARELL STERN DO 01/22/17 Reported Medications Metoprolol Succinate* (Toprol XL*) 50 Mg Tab.er.24h, 50 MG PO DAILY, #30 TAB 01/21/17 Amlodipine Besylate* (Norvasc*) 5 Mg Tablet, 5 MG PO DAILY, TAB 01/21/17 Omeprazole* (Omeprazole*) 40 Mg Capsule.dr, 40 MG PO DAILY, #30 CAP 01/21/17 Losartan-Hydrochlorothiazide (Losartan-HCTZ) 100-25 Mg Tab, 1 TAB PO DAILY, TAB 01/21/17 Pravastatin Sodium* (Pravastatin Sodium*) 20 Mg Tablet, 20 MG PO HS, TAB 01/21/17 Allergies Allergies: Coded Allergies: No Known Allergy (Unverified , 01/21/17) PMhx/Soc History of Surgery: Yes (HERNIA REPAIR 1996) Anesthesia Reaction: No Hx Neurological Disorder: No Hx Respiratory Disorders: No Hx Cardiac Disorders: Yes (HTN, DYSLIPIDEMIA) Hx Psychiatric Problems: No Hx Alcohol Use: Yes Hx Substance Use: No Hx Tobacco Use: Yes Smoking Status: Current every day smoker Physical Exam Vitals Vital Signs Date Time Temp Pulse Resp B/P Pulse Ox O2 Delivery O2 Flow Rate FiO2 05/08/17 20:53 98.5 92 20 148/80 98 Physical Exam Const: Well-developed well-nourished Head: Atraumatic Eyes: Normal Conjunctiva ENT: Normal External Ears, Nose and Mouth. Neck: Full range of motion..~ No meningismus. Resp: Clear to auscultation bilaterally Cardio: Regular rate and rhythm, no murmurs Abd: Soft, non tender, non distended. Normal bowel sounds Skin: 5 sutures intact on the left upper eyebrow, no dehiscence or erythema or induration or pus Back: No midline or flank tenderness Ext: No cyanosis, or edema Neur: Awake and alert Psych: Normal Mood and Affect Procedures/MDM This is a 56-year-old male presenting to the emergency department to remove 5 sutures that are above his left eyebrow from a mechanical fall that occurred about 1 week ago. There was no evidence of dehiscence, cellulitis. It appears there is healing well. In the ED I have used alcohol swab to clean the area and I removed 5 sutures. I have placed Steri-Strips as well. Patient is stable and neurovascular intact to be discharged home. Discussed return to the ER for any worsening symptoms. He understands and agrees with Departure Diagnosis: Primary Impression: Encounter for removal of sutures Condition: Stable Patient Instructions: Suture Removal, No Complication Referrals: ELIDIA FRITZ (PCP) Additional Instructions: FOLLOW UP WITH YOUR PRIMARY CARE PHYSICIAN TOMORROW.Return to this facility if you are not improving as expected. Return to this facility if you are not improving as expected. LETI FOX PA-C May 08, 2017 21:22
== END 2017-05-08 21:20 | disposition home or self-care (01) ==
LOC: FTE 20:52
DX: Z48.02 Encounter for removal of sutures (principal); I10 Essential (primary) hypertension; F17.210 Nicotine dependence, cigarettes, uncomplicated
CPT/HCPCS: 99281

== ENCOUNTER 2018-03-12 11:14 | Emergency (ER) | END 2018-03-12 13:58 | disposition home or self-care (01) ==